=== PATIENT | male | born 1990 | race Caucasian/White ===

== ENCOUNTER 2020-12-24 13:35 | Emergency (ER) | payer MEDICAID ==
[2020-12-24 13:44] VITALS: BP 142/90
[2020-12-24] MEDS ORDERED: ONDANSETRON ODT 4 MG TABLET TL STA (14:38)
--- NOTE | 2020-12-24 14:40 | ED Physician Documentation ---
PD HPI GI BLEED - Stated complaint Stated Complaint: N/V - Chief complaint Chief Complaint: Abd Pain - History obtained from History obtained from: Patient - Additional information Additional information: Patient comes emergency department chief complaint of nausea and vomiting that started yesterday evening. He states that he had felt fine all day but then he began to feel that his stomach was a little unsettled and by around 1700, he had vomited. About 2 hours later, patient states that he decided to eat a piece of [employer] pizza because he thought it was "nice and light" and that his s tomach could handle it. Patient states that within an hour he was vomiting again. He was uncomfortable all night, but got up and drank a Mountain Dew this morning. After drinking the whole can, he began to feel some uncomfortable and ultimately, began vomiting again. The patient denies fevers or chills. He states he has some crampy abdominal pain across the top of his abdomen but otherwise no specific abdominal pain. His toddler aged son has been sick with the same thing. The rest the family is not sick. 1 episode of diarrhea. No dysuria. No other complaints at this time. Review of Systems Ten Systems: 10 systems reviewed and negative Constitutional: reports: Reviewed and negative Eyes: reports: Reviewed and negative Ears: reports: Reviewed and negative Nose: reports: Reviewed and negative Throat: reports: Reviewed and negative Cardiac: reports: Reviewed and negative Respiratory: reports: Reviewed and negative GI: reports: Abdominal Pain, Nausea, Vomiting, Diarrhea : reports: Reviewed and negative Skin: reports: Reviewed and negative Musculoskeletal: reports: Reviewed and negative Neurologic: reports: Reviewed and negative Psychiatric: reports: Reviewed and negative Endocrine: reports: Reviewed and negative Immunocompromised: reports: Reviewed and negative PD PAST MEDICAL HISTORY - Present Medications Home Medications: Ambulatory Orders Medication Instructions Recorded Confirmed Ondansetron Odt [Zofran] 4 mg TL Q6H PRN #10 tablet 12/24/20 - Allergies Allergies/Adverse Reactions: Allergies Allergy/AdvReac Type Severity Reaction Status Date / Time Sulfa (Sulfonamide Allergy Anaphylaxis Verified 12/24/20 13:44 Antibiotics) PD ED PE NORMAL - Vitals Vital signs reviewed: Yes - General General: Alert and oriented X 3, No acute distress (Patient appears mildly uncomfortable but otherwise no apparent distress.), Well developed/nourished - HEENT HEENT: Atraumatic, PERRL, EOMI, Moist mucous membranes - Neck Neck: Supple, no meningeal sign - Cardiac Cardiac: RRR, No murmur, Strong equal pulses - Respiratory Respiratory: No respiratory distress, Clear bilaterally - Abdomen Abdomen: Soft, Non tender, Non distended, Other (Obese abdomen) - Derm Derm: Normal color, Warm and dry, No rash - Extremities Extremities: No deformity, No edema - Neuro Neuro: Alert and oriented X 3, sales stock associate 2-12 intact, Normal speech - Psych Psych: Normal mood, Normal affect Results - Vitals Vitals: Vital Signs - 24 hr 12/24/20 13:40 Temperature 36.3 C L Heart Rate 102 H Respiratory 20 Rate Blood Pressure 142/90 H O2 Saturation 98 Oxygen O2 Source Room air PD MEDICAL DECISION MAKING - ED course Complexity details: considered differential, d/w patient, d/w family ED course: Patient stated he prefers oral dissolving Zofran instead of IV. He was given a dose of this here. We have discussed clear liquid diet and advancement of diet tomorrow if the patient does not vomit further tonight. I have given him prescription for oral dissolving Zofran for home. We have discussed the usual indications for return. Departure - Departure Disposition: 01 Home, Self Care Clinical Impression: Gastroenteritis Condition: Stable Instructions: ED Gastroenteritis Viral, Diet Clear Liquid Dc Prescriptions: Ondansetron Odt [Zofran] 4 mg TL Q6H PRN #10 tablet PRN Reason: Nausea / Vomiting
== END 2020-12-24 14:57 | disposition home or self-care (01) ==
LOC: ED 13:35
DX: K52.9 Noninfective gastroenteritis and colitis, unspecified (principal)
CPT/HCPCS: 99282; 99284; Q0162

== ENCOUNTER 2021-01-01 13:02 | Emergency (ER) | payer MEDICAID ==
[2021-01-01 14:08] LABS: BASOPHILS % (AUTO) 0.4 %; EOSINOPHILS # (AUTO) 0.2 10^3/uL (0.0-0.7); HCT - HEMATOCRIT 42.5 % (42.0-52.0); LYMPHOCYTES # (AUTO) 2.4 10^3/uL (1.5-3.5); LYMPHOCYTES % (AUTO) 24.9 %; MEAN CORPUSCULAR HEMOGLOBIN 28.6 pg (27.0-31.0); MEAN CORPUSCULAR HGB CONC 32.9 g/dL (32.0-36.0); MEAN CORPUSCULAR VOLUME 86.7 fL (80.0-94.0); MONOCYTES # (AUTO) 0.6 10^3/uL (0.0-1.0); NEUTROPHILS # (AUTO) 6.3 10^3/uL (1.5-6.6); NEUTROPHILS % (AUTO) 66.3 %; PLT - PLATELET COUNT 326 10^3/uL (130-450); WHITE BLOOD COUNT 9.5 x10^3/uL (4.8-10.8)
[2021-01-01 14:23] LABS: ALBUMIN 4.1 g/dL (3.2-5.5); BILIRUBIN,TOTAL 0.5 mg/dL (0.2-1.0); CREATININE 0.8 mg/dL (0.6-1.2); POTASSIUM 4.4 mmol/L (3.5-5.0); TOTAL PROTEIN 8.1 g/dL (6.7-8.2)
[2021-01-01] MEDS ORDERED: SODIUM CHLORIDE 0.9% 1,000 ML IV STA ×2 (14:48→16:33)
[2021-01-01] MEDS ORDERED: ONDANSETRON 4 MG/2 ML VIAL IVP STA (14:48)
[2021-01-01 15:32] LABS: BILIRUBIN,URINE NEGATIVE (NEGATIVE); GLUCOSE, URINE (UA) NEGATIVE (NEGATIVE); KETONES,URINE (UA) NEGATIVE (NEGATIVE); LEUKOCYTE ESTERASE, URINE NEGATIVE (NEGATIVE); NITRITE,URINE NEGATIVE (NEGATIVE); OCCULT BLOOD,URINE NEGATIVE (NEGATIVE); PROTEIN,URINE NEGATIVE (NEGATIVE); UROBILINOGEN,URINE 0.2 (NORMAL) E.U./dL (NORMAL)
[2021-01-01 15:43] LABS: CLARITY,URINE CLEAR (CLEAR)
--- NOTE | 2021-01-01 16:09 | ED Physician Documentation ---
PD HPI NVD - Stated complaint Stated Complaint: N/V COUGH - Chief complaint Chief Complaint: Abd Pain - History obtained from History obtained from: Patient - History of Present Illness Timing - onset: How many days ago (8) Timing - duration: Days (8) Timing - details: Gradual onset, Still present Associated symptoms: Abdominal pain Contributing factors: Sick contact, Bad food Improved by: Vomiting Worsened by: Eating Similar symptoms before: Diagnosis (gastroenteritis) Recently seen: Emergency Dept - Additonal information Additional information: 30-year-old male was diagnosed with gastroenteritis that he appeared to have caught from his child last week. He felt that he was improving he went back to eating and has developed vomiting again. Review of Systems Constitutional: reports: Myalgias, Fatigue. denies: Fever Eyes: denies: Decreased vision Ears: denies: Ear pain Nose: denies: Congestion Throat: denies: Sore throat Cardiac: denies: Chest pain / pressure, Palpitations Respiratory: denies: Dyspnea, Cough GI: reports: Nausea, Vomiting. denies: Abdominal Pain : denies: Dysuria, Frequency PD PAST MEDICAL HISTORY - Present Medications Home Medications: Ambulatory Orders Medication Instructions Recorded Confirmed Ondansetron Odt [Zofran] 4 mg TL Q6H PRN #10 tablet 12/24/20 Ondansetron Odt [Zofran] 4 mg TL Q6H PRN #10 tablet 01/01/21 - Allergies Allergies/Adverse Reactions: Allergies Allergy/AdvReac Type Severity Reaction Status Date / Time Sulfa (Sulfonamide Allergy Anaphylaxis Verified 01/01/21 13:14 Antibiotics) - Social History Does the pt smoke?: No Smoking Status: Never smoker PD ED PE NORMAL - Vitals Vital signs reviewed: Yes (Hypertensive) - General General: Alert and oriented X 3, Well developed/nourished, Other (Patient appears nauseous and is clutching an emesis bag vomits during the interview.) - HEENT HEENT: Atraumatic, PERRL, EOMI - Neck Neck: Supple, no meningeal sign, No bony TTP - Cardiac Cardiac: RRR, No murmur - Respiratory Respiratory: No respiratory distress, Clear bilaterally - Abdomen Abdomen: Soft, Non tender - Back Back: No CVA TTP, No spinal TTP - Derm Derm: Normal color, Warm and dry, No rash - Extremities Extremities: No deformity, No edema - Neuro Neuro: Alert and oriented X 3, leave specialist 2-12 intact, No motor deficit, No sensory deficit, Normal speech Eye Opening: Spontaneous Motor: Obeys Commands Verbal: Oriented GCS Score: 15 - Psych Psych: Normal mood, Normal affect Results - Vitals Vitals: Vital Signs - 24 hr 01/01/21 01/01/21 01/01/21 13:14 15:18 17:00 Temperature 36.5 C Heart Rate 75 78 70 Respiratory 16 18 20 Rate Blood Pressure 148/92 H 133/77 H 130/68 O2 Saturation 96 99 98 Oxygen O2 Source Room air - Labs Labs: Laboratory Tests 01/01/21 01/01/21 01/01/21 14:03 14:03 15:20 WBC 9.5 RBC 4.90 Hgb 14.0 Hct 42.5 MCV 86.7 MCH 28.6 MCHC 32.9 RDW 13.0 Plt Count 326 MPV 9.0 Neut # (Auto) 6.3 Lymph # (Auto) 2.4 [place] # (Auto) 0.6 Eos # (Auto) 0.2 Baso # (Auto) 0.0 Absolute Nucleated RBC 0.00 Nucleated RBC % 0.0 Sodium 142 Potassium 4.4 Chloride 104 Carbon Dioxide 28 Anion Gap 10.0 BUN 16 Creatinine 0.8 Estimated GFR (MDRD) 114 Glucose 95 Calcium 10.0 Total Bilirubin 0.5 AST 29 ALT 38 Alkaline Phosphatase 104 Total Protein 8.1 Albumin 4.1 Globulin 4.0 Albumin/Globulin Ratio 1.0 Lipase 27 Urine Color YELLOW Urine Clarity CLEAR Urine pH 6.0 Ur Specific [place] >=1.030 H Urine Protein NEGATIVE Urine Glucose (UA) NEGATIVE Urine Ketones NEGATIVE Urine Occult Blood NEGATIVE Urine Nitrite NEGATIVE Urine Bilirubin NEGATIVE Urine Urobilinogen 0.2 (NORMAL) Ur Leukocyte Esterase NEGATIVE Ur Microscopic Review NOT INDICATED Urine Culture Comments NOT INDICATED PD MEDICAL DECISION MAKING - ED course Complexity details: reviewed results, re-evaluated patient, considered differential, d/w patient ED course: 30-year-old male with acute gastroenteritis response to treatment with saline and Zofran. Departure - Departure Disposition: 01 Home, Self Care Clinical Impression: Gastroenteritis Condition: Stable Instructions: ED Gastroenteritis Viral Follow-Up: [facility] [Provider Group] Prescriptions: Ondansetron Odt [Zofran] 4 mg TL Q6H PRN #10 tablet PRN Reason: Nausea / Vomiting Forms: Activity restrictions
[2021-01-01 17:10] VITALS: BP 130/68
== END 2021-01-01 18:05 | disposition home or self-care (01) ==
LOC: ED 13:02
DX: K52.9 Noninfective gastroenteritis and colitis, unspecified (principal)
CPT/HCPCS: 36415; 80053; 81001; 81003; 83690; 85025; 87086; 96374; 99284

== ENCOUNTER 2022-04-02 05:25 | Outpatient (CLI) | payer MEDICAID | END 2022-04-02 23:59 | disposition critical access hospital (66) | LOC: EMS 05:25 | DX: R10.84 Generalized abdominal pain (principal); K62.5 Hemorrhage of anus and rectum; R39.89 Other symptoms and signs involving the genitourinary system | CPT/HCPCS: A0425; A0427; A0999 ==

== ENCOUNTER 2022-05-07 10:55 | Outpatient (CLI) | payer MEDICAID | END 2022-05-07 10:56 | disposition critical access hospital (66) | LOC: EMS 10:55 | DX: R10.812 Left upper quadrant abdominal tenderness (principal); R10.814 Left lower quadrant abdominal tenderness; R39.198 Other difficulties with micturition; Z87.442 Personal history of urinary calculi | CPT/HCPCS: A0425; A0427; A0999 ==

== ENCOUNTER 2022-05-07 11:20 | Emergency (ER) | payer MEDICAID ==
[2022-05-07 11:38] VITALS: BP 147/72
--- NOTE | 2022-05-07 12:01 | ED Physician Documentation ---
PD HPI ABD PAIN - Stated complaint Stated Complaint: L LOWER QUAD PX/TENDERNESS W/ BACK PX - Chief complaint Chief Complaint: Abd Pain - History obtained from History obtained from: Patient - Additional information Additional information: 31-year-old gentleman with a history of renal colic x1 with a 6 mm UPJ stone on the left diagnosed last month. Pain had gone away until yesterday when he developed some left lower quadrant pain and more severe today like a soreness. The pain is lower and radiating to the testicle more than the prior visit. Review of that CT shows there were no other nephroliths. Review of Systems Ten Systems: 10 systems reviewed and negative Constitutional: denies: Fever, Chills GI: reports: Abdominal Pain : reports: Frequency, Unable to Void PD PAST MEDICAL HISTORY - Past Medical History GI: Hemorrhoids - Past Surgical History Past Surgical History: No - Present Medications Home Medications: Ambulatory Orders Medication Instructions Recorded Confirmed HYDROcod/ACETAM 5/325 [[place] 5/325] 1 - 2 tablet PO Q6H PRN #14 tablet 04/02/22 Tamsulosin HCl [Flomax] 0.4 mg PO DAILY PM #10 cap 04/02/22 Ondansetron Odt [Zofran] 4 mg TL Q6H PRN #10 tablet 05/07/22 Oxycodone HCl/Acetaminophen 1 - 2 each PO Q6H PRN #14 tablet 05/07/22 [Percocet 5-325 mg Tablet] Tamsulosin [Flomax] 0.4 mg PO DAILY #14 cap 05/07/22 - Allergies Allergies/Adverse Reactions: Allergies Allergy/AdvReac Type Severity Reaction Status Date / Time Sulfa (Sulfonamide Allergy Anaphylaxis Verified 01/01/21 13:14 Antibiotics) - Social History Does the pt smoke?: No Smoking Status: Never smoker Does the pt drink ETOH?: No Does the pt have substance abuse?: No - Immunizations Immunizations are current?: Yes PD ED PE NORMAL - Vitals Vital signs reviewed: Yes - General General: Alert and oriented X 3, No acute distress - HEENT HEENT: PERRL, EOMI - Cardiac Cardiac: RRR, No murmur - Respiratory Respiratory: No respiratory distress, Clear bilaterally - Abdomen Abdomen: Normal bowel sounds, Soft, Other (Mild left flank tenderness, no abdomi nal tenderness) - Derm Derm: Normal color, Warm and dry - Extremities Extremities: No edema, No calf tenderness / cord - Neuro Neuro: Alert and oriented X 3, Normal speech Results - Vitals Vitals: Vital Signs - 24 hr 05/07/22 11:36 Temperature 36.5 C Heart Rate 75 Respiratory 20 Rate Blood Pressure 147/72 H O2 Saturation 99 Oxygen O2 Source Room air - Labs Labs: Laboratory Tests 05/07/22 05/07/22 05/07/22 12:05 12:05 13:15 WBC 7.8 RBC 4.80 Hgb 13.3 L Hct 41.9 L MCV 87.3 MCH 27.7 MCHC 31.7 L RDW 13.2 Plt Count 327 MPV 9.2 Neut # (Auto) 5.2 Lymph # (Auto) 2.1 [place] # (Auto) 0.3 Eos # (Auto) 0.1 Baso # (Auto) 0.0 Absolute Nucleated RBC 0.00 Nucleated RBC % 0.0 Sodium 135 Potassium 3.9 Chloride 101 Carbon Dioxide 28 Anion Gap 6.0 BUN 14 Creatinine 0.7 Estimated GFR (MDRD) 132 Glucose 104 H Calcium 8.9 Urine Color BROWN Urine Clarity CLOUDY Urine pH 6.0 Ur Specific [place] >=1.030 H Urine Protein 30 H Urine Glucose (UA) NEGATIVE Urine Ketones NEGATIVE Urine Occult Blood LARGE H Urine Nitrite NEGATIVE Urine Bilirubin NEGATIVE Urine Urobilinogen 0.2 (NORMAL) Ur Leukocyte Esterase NEGATIVE Urine RBC TNTC H Urine WBC 6-10 H Ur Squamous Epith Cells FEW Squamous Urine Bacteria Moderate H Ur Microscopic Review INDICATED Urine Culture Comments INDICATED PD Medical Decision Making - ED course ED course: 31-year-old gentleman presents with recurrent renal colic on the same side as last month. CT reviewed. This is likely to be the same stone as he did not have other visible nephroliths at that time. He was pain-free after medication here. Given a copy of his CAT scan on CD to aid in follow-up. Departure - Departure Disposition: 01 Home, Self Care Clinical Impression: Ureterolithiasis Condition: Good Record reviewed to determine appropriate education?: Yes Instructions: ED Stone Renal W Colic Prescriptions: Tamsulosin [Flomax] 0.4 mg PO DAILY #14 cap Oxycodone HCl/Acetaminophen [Percocet 5-325 mg Tablet] 1 - 2 each PO Q6H PRN #14 tablet PRN Reason: pain Ondansetron Odt [Zofran] 4 mg TL Q6H PRN #10 tablet PRN Reason: Nausea / Vomiting Comments: I sent your prescriptions electronically to [facility] in [place]. As discussed you should follow-up with the urologist, closest to you is in [place], the phone number is [phone], call for the next available appointment. Return for new or worsening symptoms. When you see the urologist take the CAT scan on CD with you to set appointment. I am prescribing a short course of narcotic pain medication for you. These are potentially dangerous and addictive medications that should be used carefully. These medications may constipate you. Take an [id number] stool softener (docusate) twice daily with plenty of water while taking these medications. If you go 24 hours without a bowel movement, take [id number] miralax, per package instructions. Do not drink or drive while taking these medications. If you received narcotic or sedating medications while in the emergency department, do not drive for 24 hours. Store this medication in a safe, secure place and out of reach of children. It is a violation of federal law to give or sell this medication to another person or to use in a manner other than prescribed. The ED will not refill narcotic prescriptions, including prescriptions lost or stolen. To dispose of unwanted medications: 1. [facility] at [address] in [place] has a medication drop box. They accept prescription medications (in pill form) Friday through Friday 9:00 a.m. to 5:00 p.m. 2. The [facility] accepts prescription medications (in pill form only) for disposal year round. Call for more information. 3. Contact the [facility] for the next [facility] sponsored prescription drug collection event. , [phone], or [phone]; Note that many narcotic pain relievers also contain Tylenol/acetaminophen. Please ensure that your total dose of acetaminophen from all sources does not exceed 3 g (3000 mg) per day.
[2022-05-07] MEDS: KETOROLAC 15 MG/ML VIAL IVP STA (12:10)
[2022-05-07] MEDS: HYDROmorphone 1 MG/ML CARPUJECT IVP STA (12:10)
[2022-05-07 12:18] LABS: BASOPHILS % (AUTO) 0.4 %; EOSINOPHILS # (AUTO) 0.1 10^3/uL (0.0-0.7); EOSINOPHILS % (AUTO) 1.4 %; HCT - HEMATOCRIT 41.9 % (42.0-52.0); HGB - HEMOGLOBIN 13.3 g/dL (14.0-18.0); LYMPHOCYTES # (AUTO) 2.1 10^3/uL (1.5-3.5); LYMPHOCYTES % (AUTO) 26.6 %; MEAN CORPUSCULAR HEMOGLOBIN 27.7 pg (27.0-31.0); MEAN CORPUSCULAR HGB CONC 31.7 g/dL (32.0-36.0); MEAN CORPUSCULAR VOLUME 87.3 fL (80.0-94.0); MEAN PLATELET VOLUME 9.2 fL (7.4-11.4); MONOCYTES # (AUTO) 0.3 10^3/uL (0.0-1.0); MONOCYTES % (AUTO) 4.1 %; NEUTROPHILS # (AUTO) 5.2 10^3/uL (1.5-6.6); NEUTROPHILS % (AUTO) 67.2 %; PLT - PLATELET COUNT 327 10^3/uL (130-450); RED CELL DISTRIBUTION WIDTH 13.2 % (12.0-15.0); WHITE BLOOD COUNT 7.8 x10^3/uL (4.8-10.8)
[2022-05-07 12:23] LABS: CALCIUM 8.9 mg/dL (8.5-10.3); CREATININE 0.7 mg/dL (0.6-1.2); POTASSIUM 3.9 mmol/L (3.5-5.0)
[2022-05-07 13:26] LABS: BILIRUBIN,URINE NEGATIVE (NEGATIVE); CLARITY,URINE CLOUDY (CLEAR); GLUCOSE, URINE (UA) NEGATIVE (NEGATIVE); KETONES,URINE (UA) NEGATIVE (NEGATIVE); LEUKOCYTE ESTERASE, URINE NEGATIVE (NEGATIVE); NITRITE,URINE NEGATIVE (NEGATIVE); OCCULT BLOOD,URINE LARGE (NEGATIVE); PROTEIN,URINE 30 mg/dL (NEGATIVE); UROBILINOGEN,URINE 0.2 (NORMAL) E.U./dL (NORMAL)
[2022-05-07 13:36] LABS: BACTERIA,URINE Moderate /HPF (None Seen); RBC,URINE TNTC /HPF (0-5); SQUAMOUS EPITHELIAL CELL,UR FEW Squamous (<= Few)
== END 2022-05-07 14:21 | disposition home or self-care (01) ==
LOC: EDUNIT# → ED 11:20
DX: N20.1 Calculus of ureter (principal)
CPT/HCPCS: 36415; 80048; 81001; 85025; 87086; 96374; 96375; 99283; 99284; J1170; 81003

== ENCOUNTER 2022-07-01 05:14 | Outpatient (CLI) | payer MEDICAID | END 2022-07-01 05:15 | disposition critical access hospital (66) | LOC: EMS 05:14 | DX: R10.32 Left lower quadrant pain (principal); R19.7 Diarrhea, unspecified; R11.2 Nausea with vomiting, unspecified | CPT/HCPCS: A0425; A0429; A0999 ==

== ENCOUNTER 2022-07-01 05:32 | Emergency (ER) | payer MEDICAID ==
[2022-07-01] MEDS ORDERED: SODIUM CHLORIDE 0.9% 1,000 ML IV STA (05:45)
[2022-07-01 05:50] LABS: BASOPHILS % (AUTO) 0.1 %; HCT - HEMATOCRIT 41.2 % (42.0-52.0); HGB - HEMOGLOBIN 13.8 g/dL (14.0-18.0); LYMPHOCYTES # (AUTO) 0.8 10^3/uL (1.5-3.5); LYMPHOCYTES % (AUTO) 7.3 %; MEAN CORPUSCULAR HEMOGLOBIN 28.3 pg (27.0-31.0); MEAN CORPUSCULAR HGB CONC 33.5 g/dL (32.0-36.0); MEAN CORPUSCULAR VOLUME 84.4 fL (80.0-94.0); MEAN PLATELET VOLUME 9.1 fL (7.4-11.4); MONOCYTES # (AUTO) 0.6 10^3/uL (0.0-1.0); MONOCYTES % (AUTO) 5.6 %; NEUTROPHILS # (AUTO) 8.9 10^3/uL (1.5-6.6); NEUTROPHILS % (AUTO) 86.7 %; PLT - PLATELET COUNT 310 10^3/uL (130-450); RED BLOOD COUNT 4.88 10^6/uL (4.70-6.10); RED CELL DISTRIBUTION WIDTH 12.4 % (12.0-15.0); WHITE BLOOD COUNT 10.3 x10^3/uL (4.8-10.8)
--- NOTE | 2022-07-01 05:56 | ED Physician Documentation ---
History of Present Illness - Stated complaint Stated Complaint: LLQ PX, DIARRHEA - Chief complaint Chief Complaint: Abd Pain - History obtained from History obtained from: Patient, EMS - Additonal information Additional information: The patient comes to the emergency department chief complaint of left sided pain after having vomiting and diarrhea for the last day. The patient states that he was mainly concerned because of the pain as he had a kidney stone a few months ago and was not sure if he had other ones that might be wanting to pass. The patient states his entire family has been ill with some sort of "stomach bug" and that he is the last 1 to get it. He started with some nausea and vomiting and diarrhea, but has been eating in between. However, he does state that when his tried to get him to eat toast yesterday, he ended up vomiting that back up. He vomited most recently right before the medics picked him up at home. The patient states that he began overnight to have pain in his left upper and lower quadrants and that he ended up taking one of his oxycodone to help with this. Patient states that both his nausea and his pain are gone now. No other complaints at this time. Review of Systems Constitutional: reports: Reviewed and negative Eyes: reports: Reviewed and negative Ears: reports: Reviewed and negative Nose: reports: Reviewed and negative Throat: reports: Reviewed and negative Cardiac: reports: Reviewed and negative Respiratory: reports: Reviewed and negative GI: reports: Abdominal Pain, Nausea, Vomiting, Diarrhea : reports: Reviewed and negative Skin: reports: Reviewed and negative Musculoskeletal: reports: Reviewed and negative Neurologic: reports: Reviewed and negative Psychiatric: reports: Reviewed and negative Endocrine: reports: Reviewed and negative Immunocompromised: reports: Reviewed and negative PD PAST MEDICAL HISTORY - Past Medical History GI: Hemorrhoids - Past Surgical History Past Surgical History: No - Present Medications Home Medications: Ambulatory Orders Medication Instructions Recorded Confirmed Oxycodone HCl/Acetaminophen 1 - 2 each PO Q6H PRN #14 tablet 05/07/22 07/01/22 [Percocet 5-325 mg Tablet] Amoxicillin 500 mg Q8HR 07/01/22 07/01/22 Ondansetron Odt [Zofran] 4 mg TL Q6H PRN #10 tablet 07/01/22 - Allergies Allergies/Adverse Reactions: Allergies Allergy/AdvReac Type Severity Reaction Status Date / Time Sulfa (Sulfonamide Allergy Hives Verified 07/01/22 05:49 Antibiotics) - Social History Does the pt smoke?: No Smoking Status: Never smoker Does the pt drink ETOH?: No Does the pt have substance abuse?: No - Immunizations Immunizations are current?: Yes PD ED PE NORMAL - Vitals Vital signs reviewed: Yes - General General: Alert and oriented X 3, No acute distress, Other (Morbidly obese) - HEENT HEENT: Atraumatic, PERRL - Neck Neck: Supple, no meningeal sign - Cardiac Cardiac: RRR, No murmur, Strong equal pulses - Respiratory Respiratory: No respiratory distress, Clear bilaterally - Abdomen Abdomen: Soft, Non tender, Non distended - Derm Derm: Normal color, Warm and dry, No rash - Extremities Extremities: No deformity, No edema - Neuro Neuro: Alert and oriented X 3, Other (Grossly intact) - Psych Psych: Normal mood, Normal affect Results - Vitals Vitals: Oxygen O2 Source Room air - Labs Labs: Laboratory Tests 07/01/22 07/01/22 07/01/22 04:50 05:32 05:32 WBC 10.3 RBC 4.88 Hgb 13.8 L Hct 41.2 L MCV 84.4 MCH 28.3 MCHC 33.5 RDW 12.4 Plt Count 310 MPV 9.1 Neut # (Auto) 8.9 H Lymph # (Auto) 0.8 [place] # (Auto) 0.6 Eos # (Auto) 0.0 Baso # (Auto) 0.0 Absolute Nucleated RBC 0.00 Nucleated RBC % 0.0 Sodium 134 L Potassium 3.3 L Chloride 102 Carbon Dioxide 20 L Anion Gap 12.0 BUN 13 Creatinine 0.8 Estimated GFR (MDRD) 114 Glucose 133 H Calcium 8.7 Total Bilirubin 0.7 AST 25 ALT 45 Alkaline Phosphatase 75 Total Protein 7.8 Albumin 3.7 Globulin 4.1 Albumin/Globulin Ratio 0.9 L Lipase 27 Urine Color YELLOW Urine Clarity CLEAR Urine pH 5.5 Ur Specific [place] >=1.030 H Urine Protein 30 H Urine Glucose (UA) NEGATIVE Urine Ketones NEGATIVE Urine Occult Blood LARGE H Urine Nitrite NEGATIVE Urine Bilirubin NEGATIVE Urine Urobilinogen 0.2 (NORMAL) Ur Leukocyte Esterase NEGATIVE Urine RBC TNTC H Urine WBC 0-3 Ur Squamous Epith Cells RARE Squamous Urine Bacteria Few Urine Yeast PRESENT Ur Microscopic Review INDICATED Urine Culture Comments NOT INDICATED PD Medical Decision Making - ED course Complexity details: reviewed old records, reviewed results, re-evaluated patient, considered differential, d/w patient ED course: The patient was fairly well-appearing in the emergency department and I did review his previous records. He had had a CT of the abdomen and pelvis in March, when he came in with left flank pain, and this showed a stone that was just beginning to pass in the left ureteropelvic junction. The stone was 6 mm and expected to be a passable size, but the patient had been referred to urology. The patient states that he had pain for some days and it finally went away, though he never was able to catch a stone. However, he thinks he most likely passed the stone eventually even though he did not actually catch it in the strainer. I did discuss with the patient that his CT at that time did not show any other stones yet to be passed in the left kidney and that I feel it is unlikely that his current bout of pain today represents the passage of the stone, as it would be unlikely that he would form a stone that quickly that was not there just a few months ago. The patient was worked up with labs, including a CBC and ER abdominal panel, and given a liter of IV fluid. His blood work was unremarkable on my review but his urinalysis did show large amount of blood, so I sent him for CT scan of the abdomen and pelvis. This showed persistence of a left-sided stone. We have discussed symptomatic management at home and the need for follow-up with urology. Departure - Departure Disposition: 01 Home, Self Care Clinical Impression: Gastroenteritis, Kidney stone on left side Condition: Stable Instructions: ED Stone Kidney Undescended No Sx, ED Gastroenteritis Viral Prescriptions: Ondansetron Odt [Zofran] 4 mg TL Q6H PRN #10 tablet PRN Reason: Nausea / Vomiting Comments: Your labs overall look pretty good. Your urinalysis shows some blood in the urine, And as such, we sent you for CT scan to evaluate the status of your kidney stone. It appears that it really has not moved much since the last time you were here and had a CT. It is most likely lodged in place, and as such, is not clear if it is actually what is causing your pain or not. Given that you have had the stone there for months, it is most likely that the pain is actually from all the vomiting and retching from this viral illness that you have, rather than from the stone itself. Nonetheless, given the steroids just been sitting there, it is a good idea for you to follow-up with urology. Please call their office again and request an appointment to follow-up and get the urologist opinion on what if anything needs to be done with the stone. At this point in time, it appears to remain in the very beginning of the ureter, or tube that drains the kidney, which is where it was in March when you had your last CT done. Discharge Date/Time: 07/01/22 07:10
[2022-07-01 06:02] LABS: BILIRUBIN,URINE NEGATIVE (NEGATIVE); GLUCOSE, URINE (UA) NEGATIVE (NEGATIVE); KETONES,URINE (UA) NEGATIVE (NEGATIVE); LEUKOCYTE ESTERASE, URINE NEGATIVE (NEGATIVE); NITRITE,URINE NEGATIVE (NEGATIVE); OCCULT BLOOD,URINE LARGE (NEGATIVE); PH,URINE 5.5 PH (5.0-7.5); PROTEIN,URINE 30 mg/dL (NEGATIVE); UROBILINOGEN,URINE 0.2 (NORMAL) E.U./dL (NORMAL)
[2022-07-01 06:11] LABS: ALBUMIN 3.7 g/dL (3.2-5.5); ALBUMIN/GLOBULIN RATIO 0.9 (1.0-2.2); BILIRUBIN,TOTAL 0.7 mg/dL (0.2-1.0); CALCIUM 8.7 mg/dL (8.5-10.3); CREATININE 0.8 mg/dL (0.6-1.2); POTASSIUM 3.3 mmol/L (3.5-5.0); TOTAL PROTEIN 7.8 g/dL (6.7-8.2)
[2022-07-01 06:14] LABS: BACTERIA,URINE Few /HPF (None Seen); CLARITY,URINE CLEAR (CLEAR); RBC,URINE TNTC /HPF (0-5); SQUAMOUS EPITHELIAL CELL,UR RARE Squamous (<= Few); WBC,URINE 0-3 /HPF (0-3); YEAST,URINE PRESENT
[2022-07-01 07:04] VITALS: BP 125/73
--- NOTE | 2022-07-01 08:12 | CT Report ---
PROCEDURE: ABDOMEN/PELVIS WO INDICATIONS: hematuria, L flank pain TECHNIQUE: Noncontrast 5 mm thick sections acquired from the diaphragms to the symphysis. 5 mm coronal and sagi ttal reformats were then performed. For radiation dose reduction, the following was used: automated exposure control, adjustment of mA and/or kV according to patient size. COMPARISON: 04/02/2022 CT FINDINGS: Image quality: Good Lower chest: Tiny hiatal hernia. Solid organs: Hepatic steatosis. Liver is otherwise unremarkable. Gallbladder is unremarkable. No pat hologic dilation of biliary tree or pancreatic duct. No splenomegaly. No adrenal nodules. Similar position and appearance of 6 to 7 mm calcified stone at the left renal pelvis with mild pelvi ectasis. No right hydronephrosis. Vessels and lymph nodes: Not well evaluated without intravenous contrast. No pathologic adenopathy by size criteria. No abdominal aortic aneurysm. Bowel and peritoneum: No small bowel obstruction. Normal appendix. No pathologic ascites. Body wall: Tiny fat-containing umbilical hernia. Pelvis: No radiopaque bladder stones. The prostate is not well evaluated on CT. Bones: No acute or suspicious osseous abnormality. IMPRESSION: Mild left renal pelviectasis. 6 to 7 mm calcified stone in the left renal pelvis, similar position co mpared to March 2022. No acute changes compared to prior imaging otherwise. Hepatic steatosis. Agree with preliminary report. Reviewed by: Cruzito Jauregui MD on 07/01/2022 8:10 AM PST Approved by: Cruzito Jauregui MD on 07/01/2022 8:10 AM PST Station ID: [id number]
== END 2022-07-01 07:10 | disposition home or self-care (01) ==
LOC: EDUNIT# → ED 05:32
DX: K52.9 Noninfective gastroenteritis and colitis, unspecified (principal); N20.0 Calculus of kidney
CPT/HCPCS: 36415; 80053; 81001; 81003; 83690; 85025; 87086; 99284

== ENCOUNTER 2022-07-22 17:06 | Outpatient (CLI) | payer MEDICAID | END 2022-07-22 23:59 | disposition EMS.NT | LOC: EMS 17:06 | DX: R11.2 Nausea with vomiting, unspecified (principal); Z59.1 Inadequate housing ==

== ENCOUNTER 2022-09-18 22:43 | Outpatient (CLI) | payer MEDICAID | END 2022-09-18 22:44 | disposition critical access hospital (66) | LOC: EMS 22:43 | DX: R10.32 Left lower quadrant pain (principal); R11.10 Vomiting, unspecified; R30.9 Painful micturition, unspecified; R39.89 Other symptoms and signs involving the genitourinary system | CPT/HCPCS: A0425; A0429; A0999 ==

== ENCOUNTER 2022-09-18 23:00 | Emergency (ER) | payer MEDICAID ==
[2022-09-18] MEDS ORDERED: ONDANSETRON ODT 4 MG TABLET TL STA (23:35)
--- NOTE | 2022-09-18 23:39 | ED Physician Documentation ---
History of Present Illness - Stated complaint Stated Complaint: VOMITING - Chief complaint Chief Complaint: Abd Pain - History obtained from History obtained from: Patient - Additonal information Additional information: 31-year-old man with history of kidney stones presents with nonbloody nonbilious nausea and vomiting and lower abdominal pain radiating to the testicles that has now resolved. Patient states that he is currently without pain and not having any nausea but " I feel really tired ". denies back pain, fever, urinary sx. scheduled for upcoming lithotripsy with his urologist. Review of Systems GI: reports: Abdominal Pain, Nausea, Vomiting PD PAST MEDICAL HISTORY - Past Medical History Past Medical History: Yes GI: Hemorrhoids - Past Surgical History Past Surgical History: No - Present Medications Home Medications: Ambulatory Orders Medication Instructions Recorded Confirmed Ketorolac [Toradol] 10 mg PO Q6H PRN #30 tablet 09/18/22 Ondansetron Odt [Zofran Odt] 4 mg TL Q6H PRN #10 tablet 09/18/22 - Allergies Allergies/Adverse Reactions: Allergies Allergy/AdvReac Type Severity Reaction Status Date / Time Sulfa (Sulfonamide Allergy Hives Verified 07/01/22 05:49 Antibiotics) - Social History Does the pt smoke?: No Smoking Status: Never smoker Does the pt drink ETOH?: No Does the pt have substance abuse?: No - Immunizations Immunizations are current?: Yes - POLST Patient has POLST: No PD ED PE NORMAL - Vitals Vital signs reviewed: Yes - General General: Alert and oriented X 3, No acute distress, Well developed/nourished - HEENT HEENT: Atraumatic, PERRL, EOMI - Neck Neck: Supple, no meningeal sign - Cardiac Cardiac: RRR - Respiratory Respiratory: No respiratory distress, Clear bilaterally - Abdomen Abdomen: Non tender, Non distended - Back Back: No CVA TTP - Derm Derm: Normal color, Warm and dry Results - Vitals Vitals: Vital Signs - 24 hr 09/18/22 23:08 Heart Rate 87 Respiratory 18 Rate Blood Pressure 119/63 O2 Saturation 93 Oxygen O2 Source Room air - Labs Labs: Laboratory Tests 09/18/22 09/18/22 09/18/22 23:42 23:42 23:45 WBC 10.6 RBC 4.47 L Hgb 12.7 L Hct 38.8 L MCV 86.8 MCH 28.4 MCHC 32.7 RDW 12.8 Plt Count 291 MPV 9.4 Neut # (Auto) 8.2 H Lymph # (Auto) 1.7 [place] # (Auto) 0.5 Eos # (Auto) 0.1 Baso # (Auto) 0.0 Absolute Nucleated RBC 0.00 Nucleated RBC % 0.0 Sodium 139 Potassium 3.8 Chloride 105 Carbon Dioxide 24 Anion Gap 10.0 BUN 17 Creatinine 0.6 Estimated GFR (MDRD) 158 Glucose 111 H Calcium 9.0 Total Bilirubin 0.5 AST 29 ALT 43 Alkaline Phosphatase 82 Total Protein 7.2 Albumin 3.8 Globulin 3.4 Albumin/Globulin Ratio 1.1 Lipase 37 Urine Color YELLOW Urine Clarity HAZY Urine pH 6.5 Ur Specific [place] >=1.030 H Urine Protein 30 H Urine Glucose (UA) NEGATIVE Urine Ketones NEGATIVE Urine Occult Blood LARGE H Urine Nitrite NEGATIVE Urine Bilirubin NEGATIVE Urine Urobilinogen 0.2 (NORMAL) Ur Leukocyte Esterase NEGATIVE Ur Microscopic Review INDICATED Urine Culture Comments Not Reportable PD Medical Decision Making - ED course ED course: 31-year-old man with history of kidney stones presents with recurrent renal colic. Will obtain lab work to confirm no kidney injury and that he does not have a UTI and then I will have him follow-up with his urologist for his lithotripsy outpatient. No SHAVONNE, normal u/a, and no hydro on ultrasound. Plan to f/u with his urologist. Prescriptions for Toradol and Zofran sent to [facility]. Return precautions given. Departure - Departure Disposition: 01 Home, Self Care Clinical Impression: Kidney stones Condition: Stable Instructions: Kidney Stones Prescriptions: Ketorolac [Toradol] 10 mg PO Q6H PRN #30 tablet PRN Reason: Pain Ondansetron Odt [Zofran Odt] 4 mg TL Q6H PRN #10 tablet PRN Reason: Nausea / Vomiting Comments: You were seen in the emergency department for kidney stones. Please follow-up with your urologist. An electronic prescription for Toradol and Zofran was sent to [facility]. Return to the emergency department if you have new or worsening symptoms or other concerns.
[2022-09-18 23:46] LABS: BASOPHILS % (AUTO) 0.4 %; EOSINOPHILS # (AUTO) 0.1 10^3/uL (0.0-0.7); EOSINOPHILS % (AUTO) 1.1 %; HCT - HEMATOCRIT 38.8 % (42.0-52.0); HGB - HEMOGLOBIN 12.7 g/dL (14.0-18.0); LYMPHOCYTES # (AUTO) 1.7 10^3/uL (1.5-3.5); MEAN CORPUSCULAR HEMOGLOBIN 28.4 pg (27.0-31.0); MEAN CORPUSCULAR HGB CONC 32.7 g/dL (32.0-36.0); MEAN CORPUSCULAR VOLUME 86.8 fL (80.0-94.0); MEAN PLATELET VOLUME 9.4 fL (7.4-11.4); MONOCYTES # (AUTO) 0.5 10^3/uL (0.0-1.0); MONOCYTES % (AUTO) 4.6 %; NEUTROPHILS # (AUTO) 8.2 10^3/uL (1.5-6.6); NEUTROPHILS % (AUTO) 77.5 %; PLT - PLATELET COUNT 291 10^3/uL (130-450); RED BLOOD COUNT 4.47 10^6/uL (4.70-6.10); RED CELL DISTRIBUTION WIDTH 12.8 % (12.0-15.0); WHITE BLOOD COUNT 10.6 x10^3/uL (4.8-10.8)
[2022-09-18 23:58] LABS: ALBUMIN 3.8 g/dL (3.2-5.5); ALBUMIN/GLOBULIN RATIO 1.1 (1.0-2.2); BILIRUBIN,TOTAL 0.5 mg/dL (0.2-1.0); CREATININE 0.6 mg/dL (0.6-1.2); POTASSIUM 3.8 mmol/L (3.5-5.0); TOTAL PROTEIN 7.2 g/dL (6.7-8.2)
[2022-09-19 00:04] LABS: BILIRUBIN,URINE NEGATIVE (NEGATIVE); GLUCOSE, URINE (UA) NEGATIVE (NEGATIVE); KETONES,URINE (UA) NEGATIVE (NEGATIVE); LEUKOCYTE ESTERASE, URINE NEGATIVE (NEGATIVE); NITRITE,URINE NEGATIVE (NEGATIVE); OCCULT BLOOD,URINE LARGE (NEGATIVE); PH,URINE 6.5 PH (5.0-7.5); PROTEIN,URINE 30 mg/dL (NEGATIVE); UROBILINOGEN,URINE 0.2 (NORMAL) E.U./dL (NORMAL)
[2022-09-19 00:05] LABS: CLARITY,URINE HAZY (CLEAR)
[2022-09-19 00:11] LABS: BACTERIA,URINE Rare /HPF (None Seen); RBC,URINE TNTC /HPF (0-5); SQUAMOUS EPITHELIAL CELL,UR RARE Squamous (<= Few); WBC,URINE 0-3 /HPF (0-3)
[2022-09-19 00:12] LABS: MUCUS,URINE Few Strands
[2022-09-19 00:33] VITALS: BP 101/45
--- NOTE | 2022-09-19 00:48 | Ultrasound Report ---
PROCEDURE: Retroperitoneal INDICATIONS: renal and bladder ultrasound TECHNIQUE: Real-time scanning was performed of the retroperitoneal organs, with image documentation. COMPARISON: CT abdomen pelvis 07/04/2022. FINDINGS: Kidneys: Right kidney measures 11.4 cm long; left kidney measures 13.8 cm long. Right renal cortica l thickness is 2 cm; left renal cortical thickness is 1.4 cm. There is minimal left pelviectasis with out definite hydronephrosis. No right hydronephrosis. No discrete shadowing renal stones. Bladder: Pre-void bladder volume is 18.6 mL. Patient unable to void. Pre-void images demonstrate no intraluminal masses or stones. On pre-void images, neither ureteral jet are noted with color Doppler interrogation. Miscellaneous: No free abdominal fluid. IMPRESSION: 1. Minimal left pelviectasis without definite hydronephrosis. 2. No discrete shadowing renal stones. Reviewed by: Sumit Ayers MD on 09/19/2022 12:47 AM PDT Approved by: Sumit Ayers MD on 09/19/2022 12:47 AM PDT Station ID: [id number]
== END 2022-09-19 00:33 | disposition home or self-care (01) ==
LOC: EDUNIT# → ED 23:00
DX: N20.0 Calculus of kidney (principal)
CPT/HCPCS: 36415; 76770; 80053; 81001; 83690; 85025; 99283; 99284; Q0162; 81003; 87086

== ENCOUNTER 2022-11-02 02:59 | Outpatient (CLI) | payer MEDICAID | END 2022-11-02 03:00 | disposition critical access hospital (66) | LOC: EMS 02:59 | DX: R10.32 Left lower quadrant pain (principal); M54.50 Low back pain, unspecified; R11.2 Nausea with vomiting, unspecified | CPT/HCPCS: A0425; A0427; A0999 ==

== ENCOUNTER 2022-11-02 03:16 | Emergency (ER) | payer MEDICAID ==
[2022-11-02] MEDS ORDERED: SODIUM CHLORIDE 0.9% 1,000 ML IV STA (03:23)
--- NOTE | 2022-11-02 03:23 | ED Physician Documentation ---
History of Present Illness - Stated complaint Stated Complaint: ABD PX - History obtained from History obtained from: Patient, EMS - Additonal information Additional information: BIBA. HPI from patient and EMS. Patient c/o sudden onset left flank and left lower back pain waking him from sleep at midnight. Pain was 10 out of 10, given 100mcg fentanyl by EMS and 4mg zofran with improvement to 4 of 10. No exacerbating factors. Pain was only ameliorated with the administration of fentanyl. Pain is associated with n/v which was improved with the zofran given by EMS. Patient says he has had similar episodes for approximately seven months (since March 2022), at which time he was found to have a left-sided UPJ stone. He says he was scheduled to have the stone removed at [facility] but the day of the surgery there was a malfunction of the equipment which forced cancellation and rescheduling. He says a few weeks later, he was called at home and told he needed to show up the following day for the procedure; he says he could not cancel other appointments and scheduled activities and thus he could not accommodate on such short notice. He says that since then, he has been waiting to hear from the urology group regarding when they can schedule him for removal of the stone. He has had other ED visits between March 2022 and today for same pain with same finding on CT A/P. Review of Systems Constitutional: denies: Fever GI: reports: Nausea, Vomiting. denies: Abdominal Pain : denies: Dysuria, Frequency, Hematuria PD PAST MEDICAL HISTORY - Past Medical History Past Medical History: Yes GI: Hemorrhoids - Past Surgical History Past Surgical History: No - Present Medications Home Medications: Ambulatory Orders Medication Instructions Recorded Confirmed Ketorolac [Toradol] 10 mg PO Q6H PRN #30 tablet 09/18/22 Ondansetron Odt [Zofran Odt] 4 mg TL Q6H PRN #10 tablet 09/18/22 Ondansetron Odt [Zofran] 4 mg TL Q6H PRN #14 tablet 11/02/22 Oxycodone HCl/Acetaminophen 1 - 2 each PO Q6HR PRN #20 tab 11/02/22 [Oxycodone-Acetaminophen 5-325] Tamsulosin [Flomax] 0.4 mg PO DAILY #20 cap 11/02/22 - Allergies Allergies/Adverse Reactions: Allergies Allergy/AdvReac Type Severity Reaction Status Date / Time Sulfa (Sulfonamide Allergy Hives Verified 07/01/22 05:49 Antibiotics) - Social History Does the pt smoke?: No Smoking Status: Never smoker Does the pt drink ETOH?: No Does the pt have substance abuse?: No - Immunizations Immunizations are current?: Yes - POLST Patient has POLST: No PD ED PE NORMAL - Vitals Vital signs reviewed: Yes - General General: Alert and oriented X 3, Well developed/nourished, Other (appears uncomfortable, moderate painful distress, even appears severe at times during H+P, with nausea and dry-heaving) - Cardiac Cardiac: RRR, No murmur - Respiratory Respiratory: No respiratory distress, Clear bilaterally - Abdomen Abdomen: Soft, Non tender - Back Back: No CVA TTP - Derm Derm: Normal color, Warm and dry Results - Vitals Vitals: Oxygen O2 Source Room air - Labs Labs: Laboratory Tests 11/02/22 11/02/22 11/02/22 03:55 03:55 04:30 WBC 12.1 H RBC 4.82 Hgb 13.7 L Hct 40.9 L MCV 84.9 MCH 28.4 MCHC 33.5 RDW 12.5 Plt Count 335 MPV 9.2 Neut # (Auto) 10.4 H Lymph # (Auto) 1.3 L [place] # (Auto) 0.3 Eos # (Auto) 0.0 Baso # (Auto) 0.0 Absolute Nucleated RBC 0.00 Nucleated RBC % 0.0 Sodium 139 Potassium 4.2 Chloride 106 Carbon Dioxide 24 Anion Gap 9.0 BUN 22 H Creatinine 1.0 Estimated GFR (MDRD) 88 L Glucose 138 H Calcium 8.9 Total Bilirubin 0.6 AST 25 ALT 28 Alkaline Phosphatase 82 Total Protein 7.9 Albumin 4.0 Globulin 3.9 Albumin/Globulin Ratio 1.0 Lipase 26 Urine Color YELLOW Urine Clarity HAZY Urine pH 6.5 Ur Specific [place] >=1.030 H Urine Protein 30 H Urine Glucose (UA) NEGATIVE Urine Ketones NEGATIVE Urine Occult Blood LARGE H Urine Nitrite NEGATIVE Urine Bilirubin NEGATIVE Urine Urobilinogen 0.2 (NORMAL) Ur Leukocyte Esterase NEGATIVE Urine RBC TNTC H Urine WBC 0-3 Ur Squamous Epith Cells FEW Squamous Urine Bacteria Rare Urine Mucus Few Strands Ur Microscopic Review INDICATED Urine Culture Comments NOT INDICATED - Rads (name of study) CT A/P Relevant Findings:: Prelim report reviewed, See rad report PD Medical Decision Making - ED course Complexity details: reviewed results, re-evaluated patient, considered differential, d/w patient ED course: Given 1 liter IV NS, 1 mg IV dilaudid, 30mg IV toradol, 4mg IV zofran, and PO oxycodone (prior to d/c). He reported excellent symptom relief with the dilaudid, zofran, and toradol. Mild leukocytosis on CBC (12.1). Mildly elevated BUN (22) with normal creatinine (1.0), possibly due to dehydration (and thus given 1 liter NS IV). UA TNTC RBC but no evidence of infection (such as WBC or nitrites). CT A/P again demonstrates left UPJ stone with moderate left hydronephrosis. This is similar to previous study (four months ago) regarding calculus size and location, with increased hydronephrosis. He is provided prescriptions for percocet, zofran, and tamsulosin. I encouraged him to pursue follow up with urology, and to contact his insurance company and/or PMD to ask for referral to a different practice if he cannot be evaluated within coming weeks by his current group. Departure - Departure Disposition: 01 Home, Self Care Clinical Impression: Renal colic on left side Condition: Good Instructions: ED Stone Renal W Colic Prescriptions: Oxycodone HCl/Acetaminophen [Oxycodone-Acetaminophen 5-325] 1 - 2 each PO Q6HR PRN #20 tab PRN Reason: Pain >8 Tamsulosin [Flomax] 0.4 mg PO DAILY #20 cap Ondansetron Odt [Zofran] 4 mg TL Q6H PRN #14 tablet PRN Reason: Nausea / Vomiting Comments: The CT scan once again shows a large kidney stone that is lodged in the left ureter (the ureter is the conduit from the kidney down to the bladder). This is the cause of your flank pain. I recommend that you get back in touch with your urology group to inquire as to next available appointment for reevaluation. I have electronically submitted prescriptions for Percocet (narcotic/opiate pain medication), ondansetron (antinausea medication), and tamsulosin (medication that can help speed up the passage of a kidney stone and increase the chances that the stone will pass without needing a surgical procedure) to the [facility] in [place]. I am prescribing a short course of narcotic pain medication for you. These are potentially dangerous and addictive medications that should be used carefully. These medications may constipate you. Take an ykum-qfl-jwilvuo stool softener (docusate) twice daily with plenty of water while taking these medications. If you go 24 hours without a bowel movement, take tany-[id number] miralax, per package instructions. Do not drink or drive while taking these medications. If you received narcotic or sedating medications while in the emergency department, do not drive for 24 hours. Store this medication in a safe, secure place and out of reach of children. It is a violation of federal law to give or sell this medication to another p erson or to use in a manner other than prescribed. The ED will not refill narcotic prescriptions, including prescriptions lost or stolen. To dispose of unwanted medications: 1. [facility] at [address] [facility] in [place] has a medication drop box. They accept prescription medications (in pill form) Friday through Friday 9:00 a.m. to 5:00 p.m. 2. [facility] [employer] [facility] accepts prescription medications (in pill form only) for disposal year round. Call for more information. 3. Contact the [facility] for the next [facility] sponsored prescription drug collection event. , [phone], or [phone]; Discharge Date/Time: 11/02/22 08:26
[2022-11-02 04:00] LABS: BASOPHILS % (AUTO) 0.3 %; EOSINOPHILS % (AUTO) 0.1 %; HCT - HEMATOCRIT 40.9 % (42.0-52.0); HGB - HEMOGLOBIN 13.7 g/dL (14.0-18.0); LYMPHOCYTES # (AUTO) 1.3 10^3/uL (1.5-3.5); LYMPHOCYTES % (AUTO) 10.4 %; MEAN CORPUSCULAR HEMOGLOBIN 28.4 pg (27.0-31.0); MEAN CORPUSCULAR HGB CONC 33.5 g/dL (32.0-36.0); MEAN CORPUSCULAR VOLUME 84.9 fL (80.0-94.0); MEAN PLATELET VOLUME 9.2 fL (7.4-11.4); MONOCYTES # (AUTO) 0.3 10^3/uL (0.0-1.0); MONOCYTES % (AUTO) 2.7 %; NEUTROPHILS # (AUTO) 10.4 10^3/uL (1.5-6.6); NEUTROPHILS % (AUTO) 86.2 %; PLT - PLATELET COUNT 335 10^3/uL (130-450); RED BLOOD COUNT 4.82 10^6/uL (4.70-6.10); RED CELL DISTRIBUTION WIDTH 12.5 % (12.0-15.0); WHITE BLOOD COUNT 12.1 x10^3/uL (4.8-10.8)
[2022-11-02 04:13] LABS: BILIRUBIN,TOTAL 0.6 mg/dL (0.2-1.0); CALCIUM 8.9 mg/dL (8.5-10.3); POTASSIUM 4.2 mmol/L (3.5-5.0); TOTAL PROTEIN 7.9 g/dL (6.7-8.2)
[2022-11-02 04:46] LABS: BILIRUBIN,URINE NEGATIVE (NEGATIVE); GLUCOSE, URINE (UA) NEGATIVE (NEGATIVE); KETONES,URINE (UA) NEGATIVE (NEGATIVE); LEUKOCYTE ESTERASE, URINE NEGATIVE (NEGATIVE); NITRITE,URINE NEGATIVE (NEGATIVE); OCCULT BLOOD,URINE LARGE (NEGATIVE); PH,URINE 6.5 PH (5.0-7.5); PROTEIN,URINE 30 mg/dL (NEGATIVE); UROBILINOGEN,URINE 0.2 (NORMAL) E.U./dL (NORMAL)
[2022-11-02 04:53] LABS: BACTERIA,URINE Rare /HPF (None Seen); CLARITY,URINE HAZY (CLEAR); RBC,URINE TNTC /HPF (0-5); SQUAMOUS EPITHELIAL CELL,UR FEW Squamous (<= Few); WBC,URINE 0-3 /HPF (0-3)
[2022-11-02 04:54] LABS: MUCUS,URINE Few Strands
[2022-11-02] MEDS ORDERED: KETOROLAC 30 MG/ML VIAL IVP STA (05:20)
[2022-11-02] MEDS ORDERED: HYDROmorphone 1 MG/ML CARPUJECT IVP STA (05:20)
[2022-11-02] MEDS ORDERED: oxyCODONE 5 MG TABLET PO STA (06:57)
[2022-11-02] MEDS ORDERED: ONDANSETRON 4 MG/2 ML VIAL IVP STA (06:57)
[2022-11-02 08:27] VITALS: BP 129/77
--- NOTE | 2022-11-02 10:08 | CT Report ---
PROCEDURE: CT abdomen pelvis without contrast INDICATIONS: left flank pain TECHNIQUE: A CT scan of the abdomen and pelvis was performed without the use of intravenous contrast. Images we re recorded and evaluated at appropriate window settings. Reformats: coronal and sagittal. For radiat ion dose reduction, the following was used: automated exposure control, adjustment of mA and/or kV ac cording to patient size. COMPARISON: 07/01/2022 FINDINGS: Image quality: Excellent. Lung bases and heart: Unremarkable. Liver: No solid mass. Gallbladder and biliary tree: Unremarkable Spleen: No splenomegaly. Pancreas: No pancreatic ductal dilation. Adrenals: No adrenal nodule. Kidneys and ureters: Left proximal ureteral 7 x 6 mm calculus associated with moderate left-sided hyd ronephrosis, increased from the prior exam Bowel and peritoneum: No bowel distension. No pathologic free fluid. Lymph nodes: No central or retroperitoneal adenopathy. Vessels: No infrarenal aortic aneurysm. PELVIS Reproductive organs: Unremarkable. Bladder: No wall thickness, accounting for underdistention. Pelvic lymph nodes: No pelvic adenopathy by size criteria. Bones: No aggressive osseous abnormality. Other: No significant ventral or inguinal hernia. IMPRESSION: Moderate left hydronephrosis associated with 6 x 7 mm calculus in the proximal left ureter Note: Final report is concordant with preliminary interpretation provided by [facility] Reviewed by: Onel Kumar MD on 11/02/2022 9:07 AM [place] Approved by: Onel Kumar MD on 11/02/2022 9:07 AM [place] Station ID: [id number]
== END 2022-11-02 08:26 | disposition home or self-care (01) ==
LOC: EDUNIT# → ED 03:16
DX: N20.0 Calculus of kidney (principal); Z87.442 Personal history of urinary calculi
CPT/HCPCS: 36415; 74176; 80053; 81001; 83690; 85025; 96374; 96375; 99284; A9270; J1170; 81003; 87086

== ENCOUNTER 2022-11-02 17:57 | Outpatient (CLI) | payer MEDICAID | END 2022-11-02 17:58 | disposition left against medical advice (07) | LOC: EMS 17:57 | DX: R10.32 Left lower quadrant pain (principal); M54.50 Low back pain, unspecified; R11.2 Nausea with vomiting, unspecified ==

== ENCOUNTER 2022-11-02 19:42 | Outpatient (CLI) | payer MEDICAID | END 2022-11-02 23:59 | disposition short-term general hospital (02) | LOC: EMS 19:42 | DX: R10.32 Left lower quadrant pain (principal); M54.50 Low back pain, unspecified; R11.2 Nausea with vomiting, unspecified | CPT/HCPCS: A0425; A0427; A0999 ==

== ENCOUNTER 2022-11-12 16:56 | Outpatient (CLI) | payer MEDICAID | END 2022-11-12 23:59 | disposition critical access hospital (66) | LOC: EMS 16:56 | DX: T40.2X2A Poisoning by other opioids, intentional self-harm, initial encounter (principal) | CPT/HCPCS: A0425; A0427 ==

== ENCOUNTER 2022-11-12 17:12 | Emergency (ER) | payer MEDICAID ==
[2022-11-12 17:31] LABS: BASOPHILS % (AUTO) 0.2 %; EOSINOPHILS # (AUTO) 0.1 10^3/uL (0.0-0.7); EOSINOPHILS % (AUTO) 0.6 %; HCT - HEMATOCRIT 41.5 % (42.0-52.0); LYMPHOCYTES # (AUTO) 3.5 10^3/uL (1.5-3.5); LYMPHOCYTES % (AUTO) 22.2 %; MEAN CORPUSCULAR HEMOGLOBIN 28.4 pg (27.0-31.0); MEAN CORPUSCULAR HGB CONC 33.7 g/dL (32.0-36.0); MEAN CORPUSCULAR VOLUME 84.2 fL (80.0-94.0); MEAN PLATELET VOLUME 9.1 fL (7.4-11.4); MONOCYTES # (AUTO) 0.8 10^3/uL (0.0-1.0); MONOCYTES % (AUTO) 5.3 %; NEUTROPHILS # (AUTO) 11.2 10^3/uL (1.5-6.6); NEUTROPHILS % (AUTO) 71.3 %; PLT - PLATELET COUNT 405 10^3/uL (130-450); RED BLOOD COUNT 4.93 10^6/uL (4.70-6.10); RED CELL DISTRIBUTION WIDTH 12.6 % (12.0-15.0); WHITE BLOOD COUNT 15.8 x10^3/uL (4.8-10.8)
[2022-11-12 18:11] LABS: ACETAMINOPHEN 28 ug/mL (10-30); ALBUMIN 3.3 g/dL (3.2-5.5); ALBUMIN/GLOBULIN RATIO 0.9 (1.0-2.2); ALKALINE PHOSPHATASE 69 IU/L (42-121); ALT ALANINE AMINOTRANSFERASE 72 IU/L (10-60); AST ASPARTATE AMINOTRANSFERASE 30 IU/L (10-42); BILIRUBIN,TOTAL 0.3 mg/dL (0.2-1.0); BUN - BLOOD UREA NITROGEN 17 mg/dL (6-20); CARBON DIOXIDE - CO2 22 mmol/L (21-32); CHLORIDE 106 mmol/L (101-111); CK- CREATINE KINASE 31 IU/L (22-269); CREATININE 0.7 mg/dL (0.6-1.2); GFR - MDRD 132 (>89); GLUCOSE 104 mg/dL (70-100); LIPASE 29 U/L (22-51); MAGNESIUM 1.7 mg/dL (1.7-2.8); POTASSIUM 3.3 mmol/L (3.5-5.0); SALICYLATE < 6.0 mg/dL; SODIUM 136 mmol/L (135-145)
[2022-11-12 18:26] LABS: MUDS CUTOFF CONCENTRATIONS CUTOFF CONC BELOW:
[2022-11-12 18:29] LABS: BILIRUBIN,URINE NEGATIVE (NEGATIVE); GLUCOSE, URINE (UA) NEGATIVE (NEGATIVE); KETONES,URINE (UA) NEGATIVE (NEGATIVE); LEUKOCYTE ESTERASE, URINE MODERATE (NEGATIVE); NITRITE,URINE NEGATIVE (NEGATIVE); OCCULT BLOOD,URINE LARGE (NEGATIVE); PROTEIN,URINE 30 mg/dL (NEGATIVE); UROBILINOGEN,URINE 0.2 (NORMAL) E.U./dL (NORMAL)
[2022-11-12 18:30] LABS: CLARITY,URINE SL. CLOUDY (CLEAR)
[2022-11-12 18:38] LABS: AMPHETAMINE SCREEN,URINE NEGATIVE (NEGATIVE); BARBITURATE SCREEN,UR NEGATIVE (NEGATIVE); BENZODIAZEPINES SCREEN, URINE NEGATIVE (NEGATIVE); COCAINE SCREEN URINE NEGATIVE (NEGATIVE); METHADONE SCREEN, URINE NEGATIVE (NEGATIVE); METHAMPHETAMINES SCREEN, URINE NEGATIVE (NEGATIVE); OPIATE SCREEN, URINE NEGATIVE (NEGATIVE); OXYCODONE SCREEN, URINE POSITIVE (NEGATIVE); PROPOXYPHENE SCREEN, URINE NEGATIVE (NEGATIVE); THC CANNABINOID SCREEN, URINE POSITIVE (NEGATIVE); TRICYCLIC ANTIDEPRESSANT,URINE NEGATIVE (NEGATIVE)
[2022-11-12 18:41] LABS: BACTERIA,URINE Few /HPF (None Seen); MUCUS,URINE Moderate Strands; SQUAMOUS EPITHELIAL CELL,UR FEW Squamous (<= Few)
[2022-11-12 21:05] LABS: ACETAMINOPHEN 16 ug/mL (10-30); SALICYLATE < 6.0 mg/dL
--- NOTE | 2022-11-12 21:21 | ED Physician Documentation ---
PD HPI MHE - Stated complaint Stated Complaint: OD - Chief complaint Chief Complaint: MHE - History obtained from History obtained from: Patient, EMS - Additional information Additional information: Patient is a 31-year-old male presenting for evaluation of intentional overdose. He states that around 2:00 this afternoon he intentionally took 9 pills of oxycodone 5 325 mg.He was prescribed this medication earlier this month for a kidney stone. He followed it with damon.He then called his who left him yesterday and told her what he had done and it was apologizing that he was not strong enough or good enough.She then called 911. Patient denies ingesting any other medications.Per EMS he was a lethargic when they got to them so they did give him 1 dose of Narcan. Review of Systems Constitutional: denies: Fever Cardiac: denies: Chest pain / pressure Respiratory: denies: Dyspnea GI: denies: Abdominal Pain Psychiatric: reports: Depressed, Suicidal PD PAST MEDICAL HISTORY - Past Medical History Past Medical History: Yes Cardiovascular: None Respiratory: Asthma Neuro: None Endocrine/Autoimmune: None GI: Hemorrhoids : Kidney stones HEENT: None Psych: Depression Musculoskeletal: None Derm: None - Past Surgical History Past Surgical History: No - Present Medications Home Medications: Ambulatory Orders Medication Instructions Recorded Confirmed Ketorolac [Toradol] 10 mg PO Q6H PRN #30 tablet 09/18/22 11/12/22 Ondansetron Odt [Zofran] 4 mg TL Q6H PRN #14 tablet 11/02/22 11/12/22 Oxycodone HCl/Acetaminophen 1 - 2 each PO Q6HR PRN #20 tab 11/02/22 11/12/22 [Oxycodone-Acetaminophen 5-325] Tamsulosin [Flomax] 0.4 mg PO DAILY #20 cap 11/02/22 11/12/22 Amox/Clav 875/125 [Augmentin 1 tablet PO Q12H 11/12/22 11/12/22 875/125 Tab] Ferrous Sulfate 325 mg PO DAILY 11/12/22 11/12/22 Phenazopyridine [Pyridium] 100 mg PO TID PRN 11/12/22 11/12/22 - Allergies Allergies/Adverse Reactions: Allergies Allergy/AdvReac Type Severity Reaction Status Date / Time Sulfa (Sulfonamide Allergy Hives Verified 11/12/22 17:19 Antibiotics) - Social History Does the pt smoke?: No Smoking Status: Never smoker Does the pt drink ETOH?: Yes Does the pt have substance abuse?: Yes Substance Use and Type: Marijuana - Immunizations Immunizations are current?: Yes - POLST Patient has POLST: No PD ED PE NORMAL - General General: Alert and oriented X 3, No acute distress, Well developed/nourished - HEENT HEENT: Atraumatic, PERRL, EOMI, Moist mucous membranes, Pharynx benign - Neck Neck: Supple, no meningeal sign - Cardiac Cardiac: No murmur, Other (Tachycardic, regular rhythm) - Respiratory Respiratory: No respiratory distress, Clear bilaterally - Abdomen Abdomen: Soft, Non tender - Derm Derm: Warm and dry - Neuro Neuro: Alert and oriented X 3, No motor deficit, Normal speech Results - Vitals Vitals: Vital Signs - 24 hr 11/12/22 11/12/22 11/12/22 17:19 17:58 18:23 Temperature 37.3 C Heart Rate 104 H 110 H 117 H Respiratory 22 8 L 14 Rate Blood Pressure 147/109 H 136/101 H 148/112 H O2 Saturation 96 98 98 If not protocol 2 2 : Oxygen Flow, liters/minute 11/12/22 11/12/22 18:30 19:00 Temperature Heart Rate 110 H 116 H Respiratory 8 L 15 Rate Blood Pressure 148/112 H 145/98 H O2 Saturation 95 96 If not protocol 2 2 : Oxygen Flow, liters/minute Oxygen O2 Source Nasal cannula - EKG (time done) 1719 EKG releavant findings:: EKG personally interpreted by author of this note. Relevant findings are: Rate 109, sinus tachycardia, no STEMI, QTc 448 Rate: Rate (enter#) (109) Rhythm: Sinus tachycardia Intervals: No: Prolonged QT Ischemia: No: ST elevation c/w ischemia - Labs Labs: Laboratory Tests 11/12/22 11/12/22 11/12/22 17:24 17:24 17:24 WBC 15.8 H RBC 4.93 Hgb 14.0 Hct 41.5 L MCV 84.2 MCH 28.4 MCHC 33.7 RDW 12.6 Plt Count 405 MPV 9.1 Neut # (Auto) 11.2 H Lymph # (Auto) 3.5 [place] # (Auto) 0.8 Eos # (Auto) 0.1 Baso # (Auto) 0.0 Absolute Nucleated RBC 0.00 Nucleated RBC % 0.0 Sodium 136 Potassium 3.3 L Chloride 106 Carbon Dioxide 22 Anion Gap 8.0 BUN 17 Creatinine 0.7 Estimated GFR (MDRD) 132 Glucose 104 H Calcium 9.0 Magnesium 1.7 Total Bilirubin 0.3 AST 30 ALT 72 H Alkaline Phosphatase 69 Total Creatine Kinase 31 Total Protein 7.0 Albumin 3.3 Globulin 3.7 Albumin/Globulin Ratio 0.9 L Lipase 29 TSH 2.66 Urine Color Urine Clarity Urine pH Ur Specific [place] Urine Protein Urine Glucose (UA) Urine Ketones Urine Occult Blood Urine Nitrite Urine Bilirubin Urine Urobilinogen Ur Leukocyte Esterase Urine RBC Urine WBC Ur Squamous Epith Cells Urine Bacteria Urine Mucus Ur Microscopic Review Urine Culture Comments Salicylates < 6.0 Urine Opiates Screen Ur Oxycodone Screen Urine Methadone Screen Ur Propoxyphene Screen Acetaminophen 28 Ur Barbiturates Screen Ur Tricyclics Screen Ur Phencyclidine Scrn Ur Amphetamine Screen U Methamphetamines Scrn U Benzodiazepines Scrn Urine Cocaine Screen U Cannabinoids Screen Ethyl Alcohol 23.0 11/12/22 11/12/22 18:20 20:47 WBC RBC Hgb Hct MCV MCH MCHC RDW Plt Count MPV Neut # (Auto) Lymph # (Auto) [place] # (Auto) Eos # (Auto) Baso # (Auto) Absolute Nucleated RBC Nucleated RBC % Sodium Potassium Chloride Carbon Dioxide Anion Gap BUN Creatinine Estimated GFR (MDRD) Glucose Calcium Magnesium Total Bilirubin AST ALT Alkaline Phosphatase Total Creatine Kinase Total Protein Albumin Globulin Albumin/Globulin Ratio Lipase TSH Urine Color YELLOW Urine Clarity SL. CLOUDY Urine pH 6.0 Ur Specific [place] 1.025 Urine Protein 30 H Urine Glucose (UA) NEGATIVE Urine Ketones NEGATIVE Urine Occult Blood LARGE H Urine Nitrite NEGATIVE Urine Bilirubin NEGATIVE Urine Urobilinogen 0.2 (NORMAL) Ur Leukocyte Esterase MODERATE H Urine RBC 11-25 H Urine WBC 11-25 H Ur Squamous Epith Cells FEW Squamous Urine Bacteria Few Urine Mucus Moderate Strands Ur Microscopic Review INDICATED Urine Culture Comments INDICATED Salicylates < 6.0 Urine Opiates Screen NEGATIVE Ur Oxycodone Screen POSITIVE H Urine Methadone Screen NEGATIVE Ur Propoxyphene Screen NEGATIVE Acetaminophen 16 Ur Barbiturates Screen NEGATIVE Ur Tricyclics Screen NEGATIVE Ur Phencyclidine Scrn NEGATIVE Ur Amphetamine Screen NEGATIVE U Methamphetamines Scrn NEGATIVE U Benzodiazepines Scrn NEGATIVE Urine Cocaine Screen NEGATIVE U Cannabinoids Screen POSITIVE H Ethyl Alcohol PD Medical Decision Making - ED course Complexity details: reviewed results, re-evaluated patient, d/w patient ED course: Pt presenting to ED after intentional opiate overdose requiring narcan. Tachycardic but other VSS and maintaining airway. Labs reviewed - WBC 15. Does not appear septic. U/A with some blood and WBC but pt without symptoms for UTI. UDS + for opiates and cannabis and small amount of ETOH on board. Poison control contacted. Repeat acetaminophen and salicylate level remain nontoxic. Pt has not required further narcan. He is agreeable to receiving psychiatric treatment. SW consult placed and pt signed out at shift change. Departure - Departure Clinical Impression: Intentional overdose, Opiate overdose Condition: Stable
[2022-11-13] MEDS ORDERED: POTASSIUM CHLORIDE 20 MEQ TABLET PO STA (00:02)
[2022-11-13 07:16] LABS: ALBUMIN 3.5 g/dL (3.2-5.5); ALBUMIN/GLOBULIN RATIO 0.9 (1.0-2.2); BILIRUBIN,TOTAL 0.6 mg/dL (0.2-1.0); CALCIUM 9.2 mg/dL (8.5-10.3); POTASSIUM 3.7 mmol/L (3.5-5.0); TOTAL PROTEIN 7.2 g/dL (6.7-8.2)
--- NOTE | 2022-11-13 13:54 | ED Physician Documentation ---
ED Addendum - Addendum Addendum: 11/13/22 13:52 The patient has been stable through the morning without any complaints. He was pleasant and cooperative. He had breakfast and was having lunch. He was evaluated by social work late morning and the patient was voluntary for hospitalization for depression and suicidal thoughts. He had had a mild overdose and no apparent symptoms related to that at this point. The patient is excepted to a psychiatric facility [facility] and EMTALA forms are filled out. S transport will be arranged. Disposition: Transfer to acute psychiatric facility in stable condition. Diagnoses: 1. Intentional overdose 2. Depression with suicidal ideation
[2022-11-13 18:11] VITALS: BP 139/93
== END 2022-11-13 19:05 ==
LOC: EDUNIT# → ED 17:12
DX: T40.2X2A Poisoning by other opioids, intentional self-harm, initial encounter (principal); F32.A Depression, unspecified
CPT/HCPCS: 36415; 80053; 80306; 80307; 80320; 80329; 81001; 82550; 83690; 83735; 84443; 85025; 87086; 93005; 99284; 99285; A9270; 81003